=== PATIENT | female | born 1955 | race Caucasian/White ===

== ENCOUNTER → 2018-02-25 | Outpatient (CLI) | payer OTHER ==
--- NOTE | 2018-02-25 09:53 | Diagnostic Imaging Report ---
PROCEDURE:ABDOMINAL ULTRASOUND COMPARISON:None. INDICATIONS:EPI PAIN FINDINGS: Exam somewhat limited by overlying bowel gas. Liver: Measures 14.4 cm. Normal hepatic parenchymal echogenicity. No focal mass. Main portal vein: Measures 1.2 cm. Hepatopetal flow. Gallbladder: No evidence of wall thickening, pericholecystic fluid, distension, or stone. Common Bile Duct: Measures 0.3 cm. No echogenic filling defect. Sonographic Alvarez's sign: Negative. Right kidney: Measures 12.6 cm. No echogenic calculi, or hydronephrosis. Normal parenchymal echogenicity. There is a heterogeneous hyperechoic mass lesion measuring 4.7 x 3 x 4.6 cm with irregular borders and internal vascularity in the mid pole. Left kidney: Measures 10.1 cm. No solid or cystic mass, echogenic calculi, or hydronephrosis. Normal parenchymal echogenicity. Spleen: Measures 8.6 cm. Pancreas: Not well visualized secondary to bowel gas. Visualized portions appear unremarkable. Inferior vena cava: Normal. Aorta: Normal. Ascites: None. CONCLUSION: Heterogeneously hyperechoic solid mass measuring up to 4.7 cm and with internal vascularity in the right mid pole kidney, suspicious for neoplasm. Recommend renal protocol MRI or CT for further evaluation. Dictated by: LAKISHA TRAN M.D. on 02/25/2018 at 10:02 Electronically approved by: LAKISHA TRAN M.D. on 02/25/2018 at 10:02
== END ==
LOC: US 07:59
PROVIDERS: ATTEND Internal Medicine Gastroenterology
DX: R10.13 Epigastric pain (principal)
CPT/HCPCS: 76700

== ENCOUNTER → 2018-03-09 | Outpatient (CLI) | payer OTHER ==
[~2018-03-09] MED LIST: GADOBENATE DIMEGLUMINE 1 ML IV ONE; LORAZEPAM INJ 2 MG/ML VIAL ONE
[2018-03-09 13:59] LABS: BLOOD UREA NITROGEN 11 mg/dL (7-26); BUN/CREATININE RATIO 12 (6-25); CREATININE, SERUM 0.92 mg/dL (0.57-1.11); EST GLOMERULAR FILTRATION RATE > 60 ML/MIN (60-)
--- NOTE | 2018-03-11 14:47 | Diagnostic Imaging Report ---
EXAM: MRI of the abdomen with and without contrast. INDICATION: Indeterminate renal mass on recent ultrasound of the abdomen. COMPARISON: None. Correlation with ultrasound of abdomen dated 02/25/2018.. TECHNIQUE: Multiplanar and multisequence imaging was performed of the abdomen. T1 and T2-weighted images were obtained with and without contrast. T1-weighted in and [id number] , Dynamic, post gadolinium T1-weighted spoiled gradient echo scans. 20 cc of MultiHance gadolinium were administered intravenously. Discussion: LOWER THORAX: Unremarkable. HEPATOBILIARY: Heterogeneous signal drop out of the hepatic parenchyma on the T1-weighted out of phase scans, consistent with steatosis. No focal hepatic lesions. No biliary ductal dilation. GALLBLADDER: Not visualized. SPLEEN: No splenomegaly. PANCREAS: No focal masses or ductal dilatation. ADRENALS: No adrenal nodules. KIDNEYS/URETERS: Kidneys enhance symmetrically. No hydronephrosis. There is a 4.6 cm lobulated heterogeneously T2 hyperintense and heterogeneous T1 hyperintense lesion exophytic of the anterior lower pole of the right kidney which demonstrate heterogeneous signal drop on the T1 out of phase scans (and diffuse signal loss on the fat saturated sequences) which demonstrate subtle curvilinear wisps of internal enhancement, as well as small foci of wall nodular enhancement consistent with an angiomyolipoma. No stones. GI TRACT: No abnormal distention, wall thickening, or evidence of bowel obstruction. Appendix is normal. LYMPH NODES: No lymphadenopathy. VESSELS: Unremarkable. PERITONEUM / RETROPERITONEUM: No free air or fluid. BONES: No suspicious lesions. SOFT TISSUES: Unremarkable. IMPRESSION: 1. 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 2. Hepatic steatosis. 3. Status post cholecystectomy. No significant biliary dilatation. Signed by: Dr. Lela Carlos M.D. on 03/11/2018 2:43 PM
== END ==
LOC: MRI 13:00
PROVIDERS: ATTEND Internal Medicine Gastroenterology
DX: N28.89 Other specified disorders of kidney and ureter (principal)
CPT/HCPCS: 36415; 74183; 82565; 84520; A9577; J2060